=== PATIENT | female | born 1995 | race Caucasian/White ===

== ENCOUNTER 2018-08-08 07:40 | Emergency (ER) | payer MEDICAID, OTHER ==
[~2018-08-08] VITALS: Ht 162.6 cm; Wt 66.3 kg
[2018-08-08 07:47] VITALS: BP 104/67
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
--- NOTE | 2018-08-08 07:57 | NUR ---
Patient being evaluated by physician at bedside.
[2018-08-08] MEDS ORDERED: KETOROLAC 60 MG/2 ML VIAL IM ONE (08:00)
--- NOTE | 2018-08-08 08:07 | NUR ---
pt to xray via w/c accompanied by biofuels technology manager
--- NOTE | 2018-08-08 08:19 | NUR ---
pt returned from xray via w/c accompanied by development technical lead.
[2018-08-08 08:51] VITALS: BP 109/70
--- NOTE | 2018-08-08 08:51 | NUR ---
Patient discharged with v/s stable. Written and verbal after care instructions given and explained. Patient alert, oriented and verbalized understanding of instructions. Ambulatory with steady gait. All questions addressed prior to discharge. ID band removed. Patient advised to follow up with PMD. Rx of Tramadol 50mg and Motrin 800mg given. Patient educated on indication of medication including possible reaction and side effects. Opportunity to ask questions provided and answered.
== END 2018-08-08 08:51 | disposition home or self-care (01) ==
LOC: MED 07:40
DX: M25.552 Pain in left hip (principal)
CPT/HCPCS: 72170; 81002; 81025; 96372; 99283; J1885

== ENCOUNTER 2018-09-04 14:37 | Emergency (ER) | payer OTHER ==
[~2018-09-04] VITALS: Ht 160 cm; Wt 64.4 kg
[2018-09-04 14:46] VITALS: BP 107/59
--- NOTE | 2018-09-04 15:10 | NUR ---
C/O LOW BACK PAIN, RIGHT HIP THAT RADIATED TO RLQ. PAIN 10/10, CONSTANT, JUST STARTED TODAY. PT DENIES TRAUMA; DENIES N/V/D, FEVERS, CHILLS. SKIN IS PINK/WARM/DRY; AAOX4 WITH EVEN AND STEADY GAIT; LUNGS CLEAR BL; HR EVEN AND REGULAR; PT DENIES ANY FEVER, CP, SOB, OR COUGH AT THIS TIME; PATIENT STATES PAIN OF 10/10 AT THIS TIME; VSS; PATIENT POSITIONED FOR COMFORT; HOB ELEVATED; BEDRAILS UP X2; BED DOWN. ER MD MADE AWARE OF PT STATUS.
[2018-09-04] MEDS ORDERED: KETOROLAC 30 MG/ML VIAL IVP ONE (15:45)
[2018-09-04 16:01] LABS: BASOPHILS % (AUTO) 0.4 % (0.0-2.0); EOSINOPHILS # (AUTO) 0.1 K/uL (0-0.4); EOSINOPHILS % (AUTO) 1.1 % (0.0-4.0); HEMATOCRIT 40.4 % (36-48); LYMPHOCYTES # (AUTO) 2.1 K/uL (2.5-16.5); LYMPHOCYTES % (AUTO) 40.8 % (20.5-51.1); MEAN CORPUSCULAR HEMOGLOBIN 31 pg (27-31); MEAN CORPUSCULAR HGB CONC 32 g/dL (33-37); MEAN CORPUSCULAR VOLUME 95.9 fL (80-94); MONOCYTES # (AUTO) 0.3 K/uL (0.8-1.0); NEUTROPHILS # (AUTO) 2.7 K/uL (1.8-7.7); NEUTROPHILS % (AUTO) 51.7 % (42.2-75.2); PLATELET COUNT (AUTO) 184 K/uL (140-450); RED BLOOD CELL COUNT(AUTO) 4.21 MIL/uL (4.20-5.40); RED CELL DISTRIBUTION WIDTH 13.4 % (11.6-13.7); WHITE BLOOD COUNT (AUTO) 5.2 K/uL (4.8-10.8)
[2018-09-04] MEDS ORDERED: KETOROLAC 30 MG/ML VIAL IM ONE (16:10)
--- NOTE | 2018-09-04 16:23 | NUR ---
US AT BEDSIDE
[2018-09-04 18:19] VITALS: BP 128/78
--- NOTE | 2018-09-04 18:19 | NUR ---
Patient discharged with v/s stable. Written and verbal after care instructions given and explained. Patient alert, oriented and verbalized understanding of instructions. Ambulatory with steady gait. All questions addressed prior to discharge. ID band removed. Patient advised to follow up with PMD. Rx of MOTRIN AND TRAMADOL given. Patient educated on indication of medication including possible reaction and side effects. Opportunity to ask questions provided and answered.
== END 2018-09-04 18:19 | disposition home or self-care (01) ==
LOC: MED 14:37
DX: R10.9 Unspecified abdominal pain (principal)
CPT/HCPCS: 36415; 76770; 76856; 81002; 81025; 82565; 85025; 93976; 96372; 99284; J1885; Q0092